=== PATIENT | female | born 1930 | race Caucasian/White ===

== ENCOUNTER 2017-10-15 22:01 | Emergency (ER) | payer MEDICARE, OTHER ==
[2017-10-15 22:59] LABS: #Eosinphils 0.2 thou/uL (0.0-0.7); #Lymphocytes 1.6 thou/uL (1.20-3.40); #Monocytes 0.6 thou/uL (0.11-0.59); #Neutrophils 4.1 thou/uL (1.40-6.50); %Basophils 0.7 % (0.0-1.0); %Eosinophils 2.4 % (0.0-10.0); %Lymphocytes 24.1 % (21.0-51.0); %Monocytes 9.2 % (0.0-10.0); %Neutrophils 63.6 % (42.0-75.0); Hemoglobin 14.4 g/dL (12.0-16.0); Mean Corpuscular HGB CONC 33.7 g/dL (32.0-36.0); Mean Platelet Volume 7.4 fL (7.4-10.4); Platelet Count 260 thou/uL (130-400); RBC Distribution Width 11.9 % (11.5-14.5); White Blood Cell (WBC) Count 6.5 thou/uL (4.8-10.8)
--- NOTE | 2017-10-15 22:59 | RAD ---
LEFT FOREARM TWO VIEWS 10/15/17 HISTORY: Fall. Injury. COMPARISON: None. FINDINGS: Limited evaluation of the carpal bones. The visualized radius and ulna do not demonstrate fracture. IMPRESSION: No fracture. POS: [facility]
[2017-10-15] MEDS ORDERED: Lidocaine 1% w/Epinephrine 1:100K 20 ML VIAL FS SCH (23:00)
[2017-10-15 23:05] LABS: PTT 29.6 SEC (22.9-36.1); Prothrombin Time 13.4 SEC (12.0-14.7)
--- NOTE | 2017-10-15 23:13 | CT ---
EXAM: NONCONTRAST HEAD CT 10/15/17 HISTORY: Fall. Laceration to left orbit. COMPARISON: 12/13/16. TECHNIQUE: Noncontrast head CT is performed from skull base to skull vertex. FINDINGS: There is left periorbital posttraumatic change. Scleral banding in the left globe is noted. Bilateral ocular lens implants are identified and grossly unremarkable. Adequate aeration of the mastoid air c ells. Chronic opacification of the left sphenoid sinus. Cavernous carotid atherosclerosis is present. Intact calvarium. No parenchymal hemorrhage. No extra-axial hematoma. No midline shift. Basilar cisterns are patent. Ag e appropriate atrophy. Cortical lundberg-white matter differentiation is preserved. Ventricles and sulci are patent and symmetric. Chronic small vessel ischemic change of white matter i dentified. 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 IMPRESSION: 1. No intracranial posttraumatic sequela. 2. Left periorbital posttraumatic changes. Consider orbit CT, if warranted. POS: [facility]
[2017-10-15 23:22] LABS: Anion Gap 14 mmol/L (10-20); BUN (Urea Nitrogen) 19 mg/dL (9.8-20.1); Calc. Creatinine Clearance 0 mL/min (70-130); Calcium 9.9 mg/dL (7.8-10.44); Carbon Dioxide 24 mmol/L (23-31); Chloride 101 mmol/L (98-107); Estimated GFR-MDRD 75; Glucose 115 mg/dL (83-110); Sodium 135 mmol/L (136-145)
[2017-10-16] MEDS ORDERED: Adacel (T-DAP) 0.5 ML VIAL ONE (00:20)
--- NOTE | 2017-11-15 14:36 | EKG ---
Test Reason : Blood Pressure : / mmHG Vent. Rate : 087 BPM Atrial Rate : 087 BPM P-R Int : 194 ms QRS Dur : 076 ms QT Int : 352 ms P-R-T Axes : 032 -16 073 degrees QTc Int : 423 ms Normal sinus rhythm Low voltage QRS Leftward axis Abnormal ECG Confirmed by KIRK WHITE DO ([id number]), deputy editor in chief TORREY ESTRADA ([id number]) on 11/15/2017 2:35:59 PM Referred By: Confirmed By:KIRK WHITE DO
== END 2017-10-16 01:00 | disposition home or self-care (01) ==
LOC: ERS 22:01
DX: S05.42XA Penetrating wound of orbit with or without foreign body, left eye, initial encounter (principal); S51.812A Laceration without foreign body of left forearm, initial encounter; I25.10 Atherosclerotic heart disease of native coronary artery without angina pectoris; I10 Essential (primary) hypertension; F41.9 Anxiety disorder, unspecified; F32.9 Major depressive disorder, single episode, unspecified; F17.210 Nicotine dependence, cigarettes, uncomplicated; Z79.899 Other long term (current) drug therapy; Z79.82 Long term (current) use of aspirin; W19.XXXA Unspecified fall, initial encounter
CPT/HCPCS: 12005; 12014; 36415; 70450; 80048; 85025; 85610; 85730; 90471; 90715; 93005; J2001

== ENCOUNTER 2018-03-10 15:59 | Observation (INO) | payer MEDICARE, OTHER ==
[2018-03-10 17:34] LABS: #Basophils 0.1 thou/uL (0.0-0.2); #Eosinphils 0.1 thou/uL (0.0-0.7); #Monocytes 0.5 thou/uL (0.11-0.59); #Neutrophils 3.4 thou/uL (1.40-6.50); %Basophils 0.8 % (0.0-1.0); %Eosinophils 2.2 % (0.0-10.0); %Lymphocytes 32.9 % (21.0-51.0); %Neutrophils 55.1 % (42.0-75.0); Hemoglobin 14.8 g/dL (12.0-16.0); Mean Corpuscular HGB CONC 33.8 g/dL (32.0-36.0); Mean Corpuscular Hemoglobin 34.7 pg (27.0-31.0); Mean Platelet Volume 8.3 fL (7.4-10.4); Platelet Count 204 thou/uL (130-400); Red Blood Cell (RBC) Count 4.26 mill/uL (4.20-5.40); White Blood Cell (WBC) Count 6.1 thou/uL (4.8-10.8)
[2018-03-10 18:05] LABS: ALT (SGPT) 14 U/L (8-55); AST (SGOT) 23 U/L (5-34); Albumin 4.1 g/dL (3.4-4.8); Alkaline Phosphatase 65 U/L (40-150); Anion Gap 12 mmol/L (10-20); BUN (Urea Nitrogen) 17 mg/dL (9.8-20.1); Bilirubin, Total 0.4 mg/dL (0.2-1.2); CK (CPK) 241 U/L (29-168); Calc. Creatinine Clearance 0 mL/min (70-130); Calcium 9.4 mg/dL (7.8-10.44); Carbon Dioxide 24 mmol/L (23-31); Chloride 104 mmol/L (98-107); Estimated GFR-MDRD 76; Globulin 3.1 g/dL (2.4-3.5); Glucose 104 mg/dL (83-110); Potassium 3.8 mmol/L (3.5-5.1); Protein, Total 7.2 g/dL (6.0-8.3); Sodium 136 mmol/L (136-145)
[2018-03-10 18:08] LABS: CKMB 3.4 ng/mL (0-6.6); Troponin I Less than 0.010 ng/mL (< 0.028)
--- NOTE | 2018-03-10 18:20 | RAD ---
SINGLE VIEW OF THE CHEST 03/10/18 COMPARISON: 04/08/16 HISTORY: Dizziness. FINDINGS: Single view of the chest shows a normal sized cardiomediastinal silhouette. There is no evidence of c onsolidation, mass, or pleural effusion. Degenerative changes are seen in the spine. IMPRESSION: No evidence of acute cardiopulmonary disease. POS: [facility]
--- NOTE | 2018-03-10 19:10 | CT ---
CT OF THE BRAIN WITHOUT CONTRAST: 03/10/18 COMPARISON: 10/15/17 HISTORY: Dizziness. TECHNIQUE: Multiple contiguous axial images were obtained in a CT of the brain without contrast. FINDINGS: There is scattered hypodensities in the subcortical and periventricular white matter likely secondary to small vessel ischemic disease. No large confluent infarction is seen. There is no evidence of hyd rocephalus, intracranial hemorrhage, or extra-axial fluid collection. The calvarium and overlying soft tissues are unremarkable. The visualized paranasal sinuses and masto id air cells are well aerated. IMPRESSION: No evidence of acute intracranial abnormality. POS: [facility]
[2018-03-10 20:35] LABS: Troponin I 0.011 ng/mL (< 0.028)
[2018-03-10 23:50] LABS: Troponin I 0.012 ng/mL (< 0.028)
[2018-03-11] MEDS ORDERED: Sodium Chloride 0.9% 1,000 ML IV SCH ×2 (00:19→01:15)
[2018-03-11] MEDS ORDERED: Ondansetron ODT 4 MG TAB SL PRN (00:19)
[2018-03-11] MEDS ORDERED: Ondansetron HCl/PF 4 MG/2 ML Vial IVP PRN ×2 (00:19→01:07)
[2018-03-11] MEDS ORDERED: Acetaminophen 325 MG TAB PO PRN (01:07)
[2018-03-11] MEDS ORDERED: Senokot 8.6 MG TAB PO PRN (01:07)
[2018-03-11] MEDS ORDERED: Guaifenesin DM 100-10/5 ML UDCUP PO PRN (01:07)
[2018-03-11 01:34] VITALS: BMI 28.0
--- NOTE | 2018-03-11 03:19 | HP ---
REASON FOR ADMISSION: Dizziness/near syncope. HISTORY OF PRESENTING ILLNESS: The patient gives history of playing bridge and felt dizzy while she was sitting on the chair. She says her vision was okay. She did not pass out. She did not feel good inside her head, which she cannot describe further. The patient did not have any weakness in any of the extremities. Her friend called the EMS. When EMS arrived, her blood pressure was more than 190 systolic. Retrospectively patient states she might not have taken her blood pressure pill in the morning. The patient also mentions that she was not drinking enough fluid from morning yesterday. Currently, has no complaints of chest pain, palpitation, PND or orthopnea. No complaints of any specific weakness in any of the extremities at present. No complaints of fever or urinary frequency or urgency. The patient says she has had a recent followup with Dr. Green for her hypertension. PAST MEDICAL AND SURGICAL HISTORY: Hypertension, history of chronic back pain with spinal stenosis, history of TIA. Had breast reduction surgery, laminectomy , face lift surgery. CURRENT MEDICATIONS: The patient is on lisinopril 5 mg twice daily, Protonix 40 mg daily, Plavix 75 mg daily, metoprolol 25 mg daily, and duloxetine 60 mg daily. ALLERGIES: No known drug allergies. PERSONAL HISTORY: Does not abuse alcohol or drugs. No history of smoking. FAMILY HISTORY: Mom at the age of 75 years, she has had history of carotid surgery and had a stroke post-surgery. Father at the age of 83 years, he has had history of heart failure. The patient lives at [facility]. She normally uses a cane or walker. The patient states she walks for nearly 30 minutes on a daily basis. REVIEW OF SYSTEMS: The following complete review of systems was negative, unless otherwise mentioned in the HPI or below: Constitutional: Weight loss or gain, ability to conduct usual activities. Skin: Rash, itching. Eyes: Double vision, pain. ENT/Mouth: Nose bleeding, neck stiffness, pain, tenderness. Cardiovascular: Palpitations, dyspnea on exertion, orthopnea. Respiratory: Shortness of breath, wheezing, cough, hemoptysis, fever or night sweats. Gastrointestinal: Poor appetite, abdominal pain, heartburn, nausea, vomiting, constipation, or diarrhea. Genitourinary: Urgency, frequency, dysuria, nocturia. Musculoskeletal: Pain, swelling. Neurologic/Psychiatric: Anxiety, depression. Allergy/Immunologic: Skin rash, bleeding tendency. PHYSICAL EXAMINATION: GENERAL: The patient is an 88-year-old female, who is currently not in any acute distress. VITAL SIGNS: Blood pressure 148/80, pulse 70 per minute, respiratory rate 16 per minute, temperature 97.7 degrees Fahrenheit, saturating 96% on room air. NECK: Supple, no elevated JVD. HEENT: Eyes: Extraocular muscles intact. Pupils are reacting to light. Oral cavity, mucous membranes are moist. No exudates or congestion. CARDIOVASCULAR SYSTEM: S1, S2 heard. Regular rhythm. RESPIRATORY SYSTEM: Air entry 1+ bilateral. No rales or rhonchi. ABDOMEN: Soft, bowel sounds heard. No tenderness, rigidity or guarding. EXTREMITIES: No peripheral edema or calf tenderness. VASCULAR SYSTEM: Peripheral pulses 1+ bilateral, no ischemic ulcerations or gangrene. CENTRAL NERVOUS SYSTEM: No gross focal deficits seen. The patient is alert, awake, and oriented well. PSYCHIATRIC SYSTEM: The patient's mood is euthymic. No hallucinations or delusions. LABORATORY AND X-RAY FINDINGS: EKG done shows sinus rhythm at 73 beats per minute. There is Q-wave seen in anteroseptal leads V1, V2, V3. White count of 6, H&H 14 and 43, platelet count 204, MCV is 102. Electrolytes stable. BUN 12 , creatinine 0.7, glucose 104. Liver enzymes within normal limits. Troponin I x2 is negative. CK-MB 3.4. BNP is 78, albumin is 4.1. Chest x-ray done shows no acute cardiopulmonary abnormalities. CT brain done shows no acute intracranial abnormality. CLINICAL IMPRESSION AND PLAN: The patient will be under observation on the stroke unit for dizziness. Likely this is due to uncontrolled hypertension/ urgency. The patient likely skipped her morning medications. We will continue her on Lipitor, Plavix, vitamin B12 home dose, folic acid, lisinopril, Toprol- XL as before. We will place her on normal saline at 60 mL per hour for mild to moderate dehydration as well and this will be discontinued after 1 liter. Will obtain orthostatic blood pressures and likely this morning the patient will be shortly discharged home if stable. Please note, I have seen and examined the patient on 03/10/2018. [facility]
[2018-03-11 06:05] LABS: #Eosinphils 0.1 thou/uL (0.0-0.7); #Monocytes 0.6 thou/uL (0.11-0.59); #Neutrophils 2.8 thou/uL (1.40-6.50); %Basophils 0.7 % (0.0-1.0); %Eosinophils 2.5 % (0.0-10.0); %Lymphocytes 36.7 % (21.0-51.0); %Monocytes 10.1 % (0.0-10.0); Hemoglobin 13.8 g/dL (12.0-16.0); Mean Corpuscular HGB CONC 33.6 g/dL (32.0-36.0); Mean Platelet Volume 7.7 fL (7.4-10.4); Platelet Count 176 thou/uL (130-400); Red Blood Cell (RBC) Count 4.06 mill/uL (4.20-5.40); White Blood Cell (WBC) Count 5.6 thou/uL (4.8-10.8)
[2018-03-11 06:14] LABS: Anion Gap 10 mmol/L (10-20); BUN (Urea Nitrogen) 16 mg/dL (9.8-20.1); Calc. Creatinine Clearance 63 mL/min (70-130); Calcium 9.1 mg/dL (7.8-10.44); Carbon Dioxide 25 mmol/L (23-31); Chloride 104 mmol/L (98-107); Estimated GFR-MDRD 78; Glucose 96 mg/dL (83-110); Potassium 3.9 mmol/L (3.5-5.1); Sodium 135 mmol/L (136-145)
[2018-03-11] MEDS ORDERED: Folic Acid 1 MG TAB PO SCH (09:00)
[2018-03-11] MEDS ORDERED: Enoxaparin Sodium 40 MG/0.4 ML SYRINGE SC SCH (09:00)
[2018-03-11] MEDS ORDERED: Famotidine 20 MG TAB PO SCH (09:00)
[2018-03-11] MEDS ORDERED: Lisinopril 5 MG TAB PO SCH (09:00)
[2018-03-11] MEDS ORDERED: Cyanocobalamin (Vitamin B-12) 1,000 MCG TAB PO SCH (09:00)
[2018-03-11] MEDS ORDERED: Clopidogrel Bisulfate 75 MG TAB PO SCH (09:00)
[2018-03-11 11:59] VITALS: BP 149/72; TEMP 97.6
[2018-03-11] MEDS ORDERED: Atorvastatin Calcium 10 MG TAB PO SCH (21:00)
--- NOTE | 2018-03-12 07:58 | PDOC.EVN ---
Event Note - Event Note Event Note: [id number] discharge summary dictated
--- NOTE | 2018-03-12 10:55 | DIS ---
DATE OF ADMISSION: 03/10/2018 DATE OF DISCHARGE: 03/11/2018 ADMITTING DIAGNOSES: 1. Hypertensive urgency due to medication noncompliance. 2. History of transient ischemic attack. 3. History of spinal stenosis. DISCHARGE DIAGNOSES: 1. Hypertensive urgency due to medication noncompliance. 2. History of transient ischemic attack. 3. History of spinal stenosis. HOSPITAL COURSE: Patient is a very pleasant 88-year-old female who was playing bridge and felt dizzy while sitting in her chair. She did not have any focal weakness and she did not really have any slu rred speech. However, she did have a headache. EMS came and her blood pressure was more than 190 sy stolic. The patient does state that sometimes, she does forget to take her blood pressure medication s and she may have forgotten to take it. Her son does also verify that his mother often does forget to take blood pressure medications. The patient is supposed to be on lisinopril 5 mg twice a day and metoprolol 25 mg at bedtime. The patient was observed, placed back on her home blood pressure medic ations without any modifications and actually did well. Her brain CT demonstrated no evidence of acu te abnormality. The patient was back to normal and ready to go home. She was instructed to be compl iant with her medications and to keep up with refills. DISCHARGE PHYSICAL EXAMINATION: VITAL SIGNS: Blood pressure 149/71, pulse 72, respirations 12, sating 95% on room air. GENERAL: Awake, alert, oriented, no acute distress. HEENT: Mucous membranes moist. HEART: Regular rate and rhythm, no murmurs, rubs, or gallops. LUNGS: Clear to auscultation bilaterally. ABDOMEN: Nontender, nondistended. EXTREMITIES: No cyanosis, clubbing or edema. DISCHARGE MEDICATIONS: 1. Aspirin 81 mg p.o. daily. 2. Lipitor 10 mg p.o. at bedtime. 3. Plavix 75 mg p.o. daily. 4. Vitamin B12 1000 mcg p.o. daily. 5. Nexium 40 mg p.o. daily. 6. Folic acid 1 mg p.o. daily. 7. Lisinopril 5 mg p.o. b.i.d. 8. Toprol-XL 25 mg p.o. at bedtime. DISCHARGE FOLLOWUP: The patient was instructed to follow up with her PCP, Dr. Khloe Heredia within 3-4 days of discharge. She had no further questions and was discharged in stable condition back home.
== END 2018-03-11 13:27 | disposition home or self-care (01) ==
LOC: ERS 15:59 → 2SE 19:12
PROVIDERS: ADMIT Emergency Medicine; ATTEND Emergency Medicine
DX: I16.0 Hypertensive urgency (principal); I10 Essential (primary) hypertension; G89.29 Other chronic pain; M54.9 Dorsalgia, unspecified; Z86.73 Personal history of transient ischemic attack (TIA), and cerebral infarction without residual deficits; Z79.02 Long term (current) use of antithrombotics/antiplatelets; Z79.82 Long term (current) use of aspirin; Z79.899 Other long term (current) drug therapy; Z91.14 Patient's other noncompliance with medication regimen; Z98.890 Other specified postprocedural states
CPT/HCPCS: 70450; 71045; 80048; 80053; 82550; 82553; 83880; 84484 ×2; 85025 ×2; 93005; 94640; 96372; 97116; 97139; 99285; G0378; G8978; G8979; G8980; 36415; J1650; J7620